=== PATIENT | female | born 1965 | race Caucasian/White ===

== ENCOUNTER 2018-12-10 21:32 | Emergency (ER) | payer SELFPAY ==
[~2018-12-10] VITALS: Ht 175.3 cm; Wt 137.8 kg
[~2018-12-10 21:32] MED LIST: DIPH-232; HYDR-762 PO; IBUP800T48 PO; METO10TA3; OMEP20CA9; ONDA4TAB35 PO; PHE25; SULF1TAB7
[2018-12-10 21:34] VITALS: BP 168/91; PULSE 94; RESP 16; Ht 175.3 cm; Wt 137.8 kg
== END 2018-12-10 22:49 | disposition left against medical advice (07) ==
LOC: FTE 21:32
DX: Z53.21 Procedure and treatment not carried out due to patient leaving prior to being seen by health care provider (principal)

== ENCOUNTER 2018-12-11 13:13 | Emergency (ER) | payer BC ==
[~2018-12-11] VITALS: Ht 175.3 cm; Wt 137.2 kg
[2018-12-11 13:23] VITALS: BP 139/98; PULSE 94; RESP 20; Ht 175.3 cm; Wt 137.2 kg
--- NOTE | 2018-12-11 15:25 | ERD ---
ER Documentation Chief Complaint Chief Complaint VB worse since Fri since pap smear. Cramping. also tx for diverticul HPI 53-year-old female, presents the emergency department, complaining of vaginal spotting after having a Pap smear done 3 days ago. The patient is currently under treatment for diverticulitis with Cipro and Flagyl. She denies intra- abdominal pain, no reports of fever, chills, urinary symptoms, diarrhea or constipation. The patient denies nausea or vomiting. ROS All systems reviewed and are negative except as per history of present illness. Medications Home Meds Active Scripts Ondansetron Hcl* (Zofran* ODT) 4 mg -ODT Tab.disper, 4 MG PO Q6 PRN for NAUSEA AND/OR VOMITING, #15 TAB Prov:VEDA PARKINSON PA-C 11/11/15 Hydrocodone Bit-Acetaminophen* ([place]*) 10-325 Mg Tablet, 1 TAB PO Q6 PRN for PAIN, #15 TAB Prov:VEDA PARKINSON PA-C 11/11/15 Ibuprofen* (Motrin*) 800 Mg Tab, 800 MG PO Q6, #30 TAB Prov:VEDA PARKINSON PA-C 11/11/15 Reported Medications Omeprazole* (Prilosec*) 20 Mg Capsule. 09/29/10 Sulfamethoxazole-Trimethoprim* (Bactrim* DS) 1 Tab Tab 09/29/10 Promethazine Hcl (Phenergan) 25 Mg Tab 09/29/10 Metoclopramide Hcl* (Metoclopramide Hcl*) 10 Mg Tablet 09/29/10 Diphenoxylate Hcl-Atropine (Lomotil) 1 Tab Tablet 09/29/10 Allergies Allergies: Coded Allergies: No Known Drug Allergies (Verified Allergy, Mild, 09/29/10) PMhx/Soc Medical and Surgical Hx: pt denies Medical Hx, pt denies Surgical Hx History of Surgery: No Anesthesia Reaction: No Hx Neurological Disorder: No Hx Respiratory Disorders: No Hx Cardiac Disorders: No Hx Psychiatric Problems: No Hx Miscellaneous Medical Probl: No Hx Alcohol Use: No Hx Substance Use: No Hx Tobacco Use: No Smoking Status: Never smoker FmHx Family History: No diabetes, No coronary disease Physical Exam Vitals Vital Signs Date Temp Pulse Resp B/P (MAP) Pulse Ox O2 O2 Flow FiO2 Time Delivery Rate 7/1/19 98.9 94 20 139/98 98 13:23 (112) Physical Exam Const: No acute distress Head: Atraumatic Eyes: Normal Conjunctiva ENT: Normal External Ears, Nose and Mouth. Neck: Full range of motion. No meningismus. Resp: Clear to auscultation bilaterally Cardio: Regular rate and rhythm, no murmurs Abd: Soft, non tender, non distended. Normal bowel sounds : Normal external genitalia, normal vagina, cervix closed with minimal bleeding in the os. No cervical motion tenderness. Skin: No petechiae or rashes Back: No midline or flank tenderness Ext: No cyanosis, or edema Neur: Awake and alert Psych: Normal Mood and Affect Procedures/MDM Vital signs stable. Pelvic examination unremarkable. Differential diagnosis considered include UTI, cystitis, , endometriosis, pelvic inflammatory disease, ruptured ovarian cyst. During the ED course the patient remained stable, no new complaints. Results and clinical impression discussed with the patient who agrees with management. The patient is stable to be treated outpatient and will be discharged home with recommendations to continue taking the medication prescribed for diverticulitis. Follow up with the primary care provider in the next 48h has been recommended. If symptoms persist, worsen or new symptoms develop, then patient should return to the ED immediately. Instructions explained and given directly by me to the patient with acknowledgment and demonstrated understanding. Disclaimer: Inadvertent spelling and grammatical errors are likely due to EHR/dictation software use and do not reflect on the overall quality of patient care. Also, please note that the electronic time recorded on this note does not necessarily reflect the actual time of the patient encounter. Departure Diagnosis: Primary Impression: Vaginal bleeding, abnormal Additional Impression: History of Papanicolaou smear of cervix Condition: Stable Additional Instructions: Thank you very much for allowing us to participate in your care. Your health and safety is our top priority at [facility]. The evaluation in the emergency department has been done to rule out an acute emergency. Chronic, [id number] conditions may have not been evaluated; therefore, you need to follow up with a primary care provider in the next 48h. If symptoms persist, worsen or new symptoms develop, then patient should return to the ED immediately. Call your primary care doctor TOMORROW for an appointment during the next 2-4 days and bring all the information provided. Have prescriptions filled and follow precisely the directions on the label. If the symptoms get worse and your provider is unavailable, return to the Emergency Department immediately. CHAY CAMPOS MD Dec 11, 2018 15:25
== END 2018-12-11 16:02 | disposition home or self-care (01) ==
LOC: FTE 13:13
DX: N93.9 Abnormal uterine and vaginal bleeding, unspecified (principal); Z87.42 Personal history of other diseases of the female genital tract
CPT/HCPCS: 99283